=== PATIENT | male | born 1995 | race Native Hawaiian/Other Pacific Islander ===

== ENCOUNTER 2017-10-12 10:54 | Emergency (ER) | payer OTHER ==
[~2017-10-12] VITALS: Ht 182.9 cm; Wt 92.1 kg
== END 2017-10-12 11:28 | disposition home or self-care (01) ==
LOC: ED 10:54
DX: K92.0 Hematemesis (principal)

== ENCOUNTER 2017-10-12 17:09 | Emergency (ER) | payer OTHER ==
[~2017-10-12] VITALS: Ht 182.9 cm; Wt 92.5 kg
== END 2017-10-12 17:49 | disposition home or self-care (01) ==
LOC: ED 17:09
DX: K92.0 Hematemesis (principal)

== ENCOUNTER 2018-08-09 21:29 | Emergency (ER) | payer OTHER ==
[~2018-08-09] VITALS: Ht 185.4 cm; Wt 78.0 kg
[2018-08-09 21:45] VITALS: BP 140/94; TEMP 98.6
== END 2018-08-09 22:00 | disposition home or self-care (01) ==
LOC: ED 21:29
DX: L02.211 Cutaneous abscess of abdominal wall (principal)

== ENCOUNTER 2020-04-10 19:34 | Emergency (ER) | payer OTHER ==
[~2020-04-10] VITALS: Ht 185.4 cm; Wt 84.4 kg
[2020-04-10 21:42] VITALS: BP 118/89; TEMP 98.4
== END 2020-04-10 21:42 | disposition home or self-care (01) ==
LOC: ED 19:34
DX: L25.9 Unspecified contact dermatitis, unspecified cause (principal); L29.8 Other pruritus
CPT/HCPCS: 87651; 96372; 99283; J2930

== ENCOUNTER 2021-07-12 00:35 | Emergency (ER) | payer OTHER ==
[~2021-07-12] VITALS: Ht 182.9 cm; Wt 791.5 kg
[2021-07-12 01:57] VITALS: BP 136/85; TEMP 98.5
== END 2021-07-12 01:37 | disposition home or self-care (01) ==
LOC: ED 00:35
DX: T63.301A Toxic effect of unspecified spider venom, accidental (unintentional), initial encounter (principal); L02.416 Cutaneous abscess of left lower limb; X58.XXXA Exposure to other specified factors, initial encounter; Y92.89 Other specified places as the place of occurrence of the external cause
CPT/HCPCS: 96372; 99283; J0696; J1885

== ENCOUNTER 2021-09-04 17:08 | Emergency (ER) | payer OTHER ==
[~2021-09-04] VITALS: Ht 182.9 cm; Wt 80.7 kg
[2021-09-04 18:02] LABS: PLATELET COUNT 353 K/uL (142-355)
[2021-09-04 18:11] LABS: POTASSIUM 4.8 mmol/L (3.6-5.2)
[2021-09-04 20:05] VITALS: BP 128/81; TEMP 98.1
== END 2021-09-04 20:10 ==
LOC: ED 17:08
PROVIDERS: Hospitalist
DX: T40.491A Poisoning by other synthetic narcotics, accidental (unintentional), initial encounter (principal); F31.89 Other bipolar disorder; X58.XXXA Exposure to other specified factors, initial encounter; Y92.149 Unspecified place in prison as the place of occurrence of the external cause
CPT/HCPCS: 80053; 80307; 80320; 80329; 81000; 85027; 93005; 99283